=== PATIENT | female | born 1935 | race Caucasian/White ===

== ENCOUNTER 2017-06-29 09:36 | Inpatient (IN) ==
[2017-06-29 10:35] LABS: Basophils # 0.1 10*3/uL (0.0-0.2); Basophils % 0.5 % (0.0-0.8); Eosinophils # 0.1 10*3/uL (0.0-0.87); Eosinophils % 0.5 % (0.00-10.9); Hemoglobin 15.2 GM/DL (12.0-16.0); Immature Granulocytes % 0.8 %; Immature Granulocytes Absolute 0.14 #; Lymphocytes # 2.2 10*3/uL (1.4-4.0); Lymphocytes % 12.3 % (21.3-54.2); Mean Corpuscular HGB Conc 35.3 GM/DL (32-36); Mean Corpuscular Hemoglobin 31 PG (27-34); Mean Corpuscular Volume 87.9 FL (87-102); Mean Platelet Volume 10.5 FL (9.6-12.0); Monocytes # 0.5 10*3/uL (0.11-0.8); Monocytes % 2.9 % (1.7-12.7); Neutrophils # 15.1 10*3/uL (1.4-7.4); Platelet Count 301 T/CUMM (130-400); Red Blood Count 4.89 MC/CUMM (3.8-5.5); Red Cell Distribution Width 13.3 % (9.3-17.3); White Blood Count 18.2 T/CUMM (4-12)
[2017-06-29 10:50] LABS: Alanine Aminotransferase 16 U/L (13-56); Albumin 3.8 G/DL (3.4-5.0); Alkaline Phosphatase 102 U/L (45-117); Aspartate Amino Transferase 19 U/L (0-37); Calcium 9.3 MG/DL (8.5-10.1); Total Protein 7.1 G/DL (6.4-8.3)
[2017-06-29 10:51] LABS: Blood Urea Nitrogen 23 MG/DL (7-18); Glucose 187 MG/DL (74-106); Sodium 136 MMOL/L (136-145); Troponin I Only < 0.015 NG/ML (0.00-0.045)
[2017-06-29 10:55] LABS: Potassium 2.5 MMOL/L (3.5-5.1)
[2017-06-29 11:29] LABS: Apearance,Urine Slightly Hazy (Clear); Bacteria,Urine Occasional /HPF (Few); Bilirubin,Urine Negative (Negative); Blood, Urine Moderate mg/dL (Negative); Glucose,Urine (UA) Negative (Negative); Hyaline Casts,Urine 21 /LPF (0-3); Ketones,Urine Negative (Negative); Mucus,Urine Occasional /LPF (Occasional); Nitrite,Urine Negative (Negative); Protein,Urine Negative; RBC,Urine 8 /HPF (0-4); Squamous Epithelial Cell,Urine Occasional /HPF (0-10); Urine Color Yellow (Yellow); Urine Specific Gravity 1.014 (1.001-1.035); Urine Urobilinogen < 2.0 EU/DL (0.2-1.0); WBC,Urine 12 /HPF (0-6)
[2017-06-29 11:41] LABS: Barbiturates Screen,Urine Negative (Negative); Benzodiazepines Screen,Urine Negative (Negative); Cannabinoid Screen,Urine Negative (Negative); Opiate Screen,Urine Negative (Negative); Phencyclidine Screen,Urine Negative (Negative)
[2017-06-29] MEDS ORDERED: cefTRIAXone 1,000 MG in SODIUM CHLORIDE 0.9% 100 ML IV STA (11:47)
[2017-06-29] MEDS ORDERED: cefTRIAXone 1,000 MG VIAL ONE (12:23)
[2017-06-29] MEDS ORDERED: POTASSIUM CHLORIDE 8 MEQ CAPSULE PO STA (12:37)
[2017-06-29] MEDS ORDERED: POTASSIUM CHLORIDE 20 MEQ TABLET PO STA (12:44)
[2017-06-29] MEDS ORDERED: POTASSIUM CHLORIDE 20 MEQ TABLET PO ONE ×2 (12:47→13:05)
[2017-06-29] MEDS ORDERED: ONDANSETRON 4 MG/2 ML VIAL IV PRN (12:55)
[2017-06-29] MEDS ORDERED: diphenhydrAMINE CAP 25 MG CAPSULE PO PRN (12:55)
[2017-06-29] MEDS ORDERED: guaiFENesin/DM ER 600-30 MG TABLET PO PRN (12:55)
[2017-06-29] MEDS ORDERED: DOCUSATE SODIUM 100 MG CAPSULE PO PRN (12:55)
[2017-06-29] MEDS ORDERED: ACETAMINOPHEN 325 MG TABLET PO PRN (12:55)
[2017-06-29] MEDS ORDERED: SODIUM CHLORIDE 0.9% 1,000 ML IV SCH (13:00)
[2017-06-29 13:21] LABS: Risk Ratio 4.79
[2017-06-29] MEDS ORDERED: GLUCAGON 1 MG VIAL IM PRN (13:36)
[2017-06-29] MEDS ORDERED: DEXTROSE 50% 25 GM/50 ML VIAL IV PRN (13:36)
[2017-06-29] MEDS ORDERED: ACETAMINOPHEN 500 MG TABLET PO STA (14:47)
[2017-06-29] MEDS ORDERED: ACETAMINOPHEN 500 MG TABLET ONE (15:06)
[2017-06-29] MEDS: PANTOPRAZOLE 40 MG TABLET PO SCH (16:18)
[2017-06-29] MEDS: ENOXAPARIN 30 MG/0.3 ML SYRINGE SUBCUT SCH (16:18)
[2017-06-29] MEDS: SODIUM CHLOR 0.9% KCL 40 MEQ 40 MEQ/1,000 ML BAG IV SCH (16:34)
[2017-06-29] MEDS: INSULIN LISPRO 100 UNIT/ML SUBCUT SCH (16:59)
[2017-06-29] MEDS: LORazepam 1 MG TABLET PO PRN (17:05)
[2017-06-29] MEDS: EZETIMIBE 10 MG TABLET PO SCH (18:08)
[2017-06-29] MEDS: TEMAZEPAM 15 MG CAPSULE PO SCH (20:54)
[2017-06-29] MEDS: SERTRALINE 50 MG TABLET PO SCH (20:54)
[2017-06-29] MEDS ORDERED: DONEPEZIL 10 MG TABLET PO SCH (21:00)
[2017-06-29] MEDS: MORPHINE 4 MG/1 ML VIAL IV PRN (23:11)
[2017-06-30] MEDS: SODIUM CHLOR 0.9% KCL 40 MEQ 40 MEQ/1,000 ML BAG IV SCH ×2 (02:08→09:20)
[2017-06-30 04:44] LABS: Basophils # 0.1 10*3/uL (0.0-0.2); Basophils % 0.5 % (0.0-0.8); Eosinophils # 0.1 10*3/uL (0.0-0.87); Eosinophils % 0.8 % (0.00-10.9); Hematocrit 36.9 VOL% (35.7-47.0); Hemoglobin 12.6 GM/DL (12.0-16.0); Immature Granulocytes % 0.5 %; Immature Granulocytes Absolute 0.07 #; Lymphocytes # 2.5 10*3/uL (1.4-4.0); Lymphocytes % 19.8 % (21.3-54.2); Mean Corpuscular HGB Conc 34.1 GM/DL (32-36); Mean Corpuscular Hemoglobin 30 PG (27-34); Mean Corpuscular Volume 88.7 FL (87-102); Mean Platelet Volume 11.1 FL (9.6-12.0); Monocytes % 8.1 % (1.7-12.7); Neutrophils % 70.3 % (38.7-73.9); Platelet Count 240 T/CUMM (130-400); Red Blood Count 4.16 MC/CUMM (3.8-5.5); Red Cell Distribution Width 13.2 % (9.3-17.3); White Blood Count 12.8 T/CUMM (4-12)
[2017-06-30 05:16] LABS: Osmolality,Calculated 283.3 MOS/KG (273-304); Potassium 3.4 MMOL/L (3.5-5.1)
[2017-06-30] MEDS: INSULIN LISPRO 100 UNIT/ML SUBCUT SCH ×2 (07:52→16:22)
[2017-06-30] MEDS ORDERED: POTASSIUM CHLORIDE 20 MEQ TABLET PO ONE (08:34)
[2017-06-30] MEDS ORDERED: SODIUM CHLORIDE 0.9% 1,000 ML IV SCH (09:00)
[2017-06-30] MEDS: PANTOPRAZOLE 40 MG TABLET PO SCH (09:18)
[2017-06-30] MEDS: ENOXAPARIN 30 MG/0.3 ML SYRINGE SUBCUT SCH (13:05)
[2017-06-30] MEDS: EZETIMIBE 10 MG TABLET PO SCH (17:02)
[2017-06-30] MEDS: MORPHINE 4 MG/1 ML VIAL IV PRN (20:50)
[2017-06-30] MEDS: TEMAZEPAM 15 MG CAPSULE PO SCH (20:50)
[2017-06-30] MEDS: SERTRALINE 50 MG TABLET PO SCH (20:50)
[2017-06-30] MEDS: LORazepam 1 MG TABLET PO PRN (22:38)
[2017-07-01] MEDS ORDERED: ceFAZolin 1,000 MG in SYRINGE 1 EACH IV ONE (06:45)
[2017-07-01] MEDS ORDERED: fentaNYL 100 MCG/2 ML VIAL ONE (06:55)
[2017-07-01] MEDS ORDERED: MIDAZOLAM 2 MG/2 ML VIAL ONE (06:55)
[2017-07-01] MEDS ORDERED: ROPIVACAINE 0.5% 30 ML VIAL ONE (06:56)
[2017-07-01 06:58] LABS: Calcium 8.1 MG/DL (8.5-10.1); Osmolality,Calculated 286.8 MOS/KG (273-304); Potassium 4.4 MMOL/L (3.5-5.1)
[2017-07-01] MEDS: INSULIN LISPRO 100 UNIT/ML SUBCUT SCH ×2 (07:08→18:44)
[2017-07-01] MEDS ORDERED: BACITRACIN OINT 0.9 GM PACK TOP ONE (08:23)
[2017-07-01] MEDS ORDERED: MORPHINE 4 MG/1 ML VIAL IV PRN ×2 (08:36)
[2017-07-01] MEDS ORDERED: MAGNESIUM HYDROXIDE SUSP 30 ML UDCUP PO PRN (08:36)
[2017-07-01] MEDS ORDERED: RACEPINEPHRINE 0.5 ML NEB RESP TX ONE ×2 (08:44→09:10)
[2017-07-01] MEDS ORDERED: SODIUM CHLORIDE 0.9% 500 ML IV ONE (10:49)
[2017-07-01] MEDS ORDERED: PHENYLEPHRINE DRIP 40 MG/250 ML PREMIX IV PRN (10:50)
[2017-07-01] MEDS ORDERED: ROCURONIUM 100 MG/10 ML VIAL IV ONE (10:51)
[2017-07-01] MEDS ORDERED: PROPOFOL 200 MG/20 ML VIAL IV ONE (10:51)
[2017-07-01] MEDS ORDERED: GLYCOPYRROLATE 0.4 MG/2 ML VIAL ONE (10:51)
[2017-07-01] MEDS ORDERED: SEVOFLURANE 1 UNIT/15 MINUTE INH ONE (10:51)
[2017-07-01] MEDS ORDERED: ACETAMINOPHEN 1,000 MG/100 ML VIAL IV ONE (10:51)
[2017-07-01] MEDS ORDERED: NEOSTIGMINE 10 MG/10 ML VIAL ONE (10:52)
[2017-07-01] MEDS ORDERED: LACTATED RINGERS 1,000 ML IV ONE (10:52)
[2017-07-01] MEDS ORDERED: DOPamine 800 MG/250 ML PREMIX IV PRN (10:54)
[2017-07-01] MEDS: SODIUM CHLORIDE 0.9% 1,000 ML IV SCH (12:35)
[2017-07-01] MEDS: PANTOPRAZOLE 40 MG TABLET PO SCH (12:35)
[2017-07-01 15:06] LABS: Troponin I Only 0.041 NG/ML (0.00-0.045)
[2017-07-01] MEDS: ceFAZolin 1,000 MG in SYRINGE 1 EACH IV SCH ×2 (15:06→21:55)
[2017-07-01] MEDS: EZETIMIBE 10 MG TABLET PO SCH (18:45)
[2017-07-01] MEDS: SERTRALINE 50 MG TABLET PO SCH (21:55)
[2017-07-01] MEDS: TEMAZEPAM 15 MG CAPSULE PO SCH (21:55)
[2017-07-02] MEDS: SODIUM CHLORIDE 0.9% 1,000 ML IV SCH (00:41)
[2017-07-02 03:21] LABS: Basophils # 0.1 10*3/uL (0.0-0.2); Basophils % 0.3 % (0.0-0.8); Hematocrit 34.3 VOL% (35.7-47.0); Hemoglobin 11.7 GM/DL (12.0-16.0); Immature Granulocytes % 0.6 %; Immature Granulocytes Absolute 0.09 #; Lymphocytes # 1.4 10*3/uL (1.4-4.0); Lymphocytes % 9.1 % (21.3-54.2); Mean Corpuscular HGB Conc 34.1 GM/DL (32-36); Mean Corpuscular Hemoglobin 31 PG (27-34); Mean Corpuscular Volume 90.7 FL (87-102); Mean Platelet Volume 11.1 FL (9.6-12.0); Neutrophils # 13.3 10*3/uL (1.4-7.4); Platelet Count 214 T/CUMM (130-400); Red Blood Count 3.78 MC/CUMM (3.8-5.5); Red Cell Distribution Width 13.6 % (9.3-17.3); White Blood Count 15.9 T/CUMM (4-12)
[2017-07-02 03:48] LABS: Calcium 8.3 MG/DL (8.5-10.1); Osmolality,Calculated 286.8 MOS/KG (273-304); Potassium 4.5 MMOL/L (3.5-5.1)
[2017-07-02] MEDS: INSULIN LISPRO 100 UNIT/ML SUBCUT SCH ×2 (07:50→16:47)
[2017-07-02] MEDS: PANTOPRAZOLE 40 MG TABLET PO SCH (08:23)
[2017-07-02] MEDS: cefTRIAXone 1,000 MG in SYRINGE 1 EACH IV SCH (11:02)
[2017-07-02] MEDS: EZETIMIBE 10 MG TABLET PO SCH (17:38)
[2017-07-02] MEDS: SERTRALINE 50 MG TABLET PO SCH (20:56)
[2017-07-02] MEDS: TEMAZEPAM 15 MG CAPSULE PO SCH (20:56)
[2017-07-03] MEDS: INSULIN LISPRO 100 UNIT/ML SUBCUT SCH (07:27)
[2017-07-03] MEDS: cefTRIAXone 1,000 MG in SYRINGE 1 EACH IV SCH (07:58)
[2017-07-03] MEDS: PANTOPRAZOLE 40 MG TABLET PO SCH (08:02)
[2017-07-03 11:57] VITALS: BP 117/64
== END 2017-07-03 12:45 | disposition home health service (06) | DRG 493 ==
LOC: EDBD → EDUNIT# → N.EDINP 09:36 → N.ED 09:36 → N.EDINP 15:32 → N.TELEN 15:47 → N.ICU 07-01 12:34 → N.3E 07-02 09:11
PROVIDERS: ADMIT Internal Medicine Infectious Disease; ATTEND Internal Medicine Infectious Disease